=== PATIENT | female | born 1985 | race Two or more races ===

== ENCOUNTER 2020-05-01 15:53 | Emergency (ER) | payer SELFPAY ==
[2020-05-01] MEDS ORDERED: Lidocaine 2% Visc 15ml soln ORAL ONE (16:15)
[2020-05-01] MEDS ORDERED: Mylanta II UD 30ml ORAL ONE (16:15)
[2020-05-01] MEDS ORDERED: Omnipaque 350 100ml vial INJ PRN (17:45)
[2020-05-01] MEDS ORDERED: Morphine Sulfate 4mg/ml Inj (IV USE ONLY) ONE (18:11)
[2020-05-01] MEDS ORDERED: Morphine Sulfate 4mg/ml Inj (IV USE ONLY) IVP ONE (18:15)
[2020-05-01] MEDS ORDERED: ACETAMINOPHEN500 M5 ORAL (19:40)
[2020-05-01] MEDS ORDERED: FAMOTIDINE20 MG ORAL (19:40)
== END 2020-05-01 20:03 | disposition home or self-care (01) ==
DX: R10.13 Epigastric pain (principal); M54.9 Dorsalgia, unspecified; R06.02 Shortness of breath; R07.9 Chest pain, unspecified
CPT/HCPCS: 36415; 71045; 71275; 80053; 81003; 81025; 83690; 84484; 85025; 85379; 93005; 96374; 99284; J2270; Q9967